=== PATIENT | female | born 1990 | race Asian ===

== ENCOUNTER 2018-02-22 17:10 | Emergency (ER) | payer OTHER ==
[~2018-02-22] VITALS: Ht 162.6 cm; Wt 65.9 kg
[2018-02-22] MEDS ORDERED: NIFE10 PO (17:25)
[2018-02-22] MEDS ORDERED: AMLO-511 PO (17:25)
[2018-02-22] MEDS ORDERED: LOSA25TA21 PO (17:25)
[2018-02-22 20:20] LABS: CALCIUM, TOTAL 9.5 mg/dL (8.8-10.5); CREATININE 18.83 mg/dL (0.60-1.30); POTASSIUM 4.2 mmol/L (3.5-5.1)
[2018-02-22 21:50] VITALS: BP 145/85
== END 2018-02-22 21:54 | disposition home or self-care (01) ==
LOC: EMS 17:12
DX: N19 Unspecified kidney failure (principal); N18.6 End stage renal disease; Z99.2 Dependence on renal dialysis
CPT/HCPCS: 99283

== ENCOUNTER 2018-03-05 00:35 | Inpatient (IN) | payer SELFPAY ==
[2018-03-05] VITALS (7 sets, daily range): BP systolic 118–170; BP diastolic 78–103
[~2018-03-05] VITALS: Ht 160 cm; Wt 81.3 kg
[~2018-03-05 00:35] MED LIST: AMLO-511 PO; LOSA25TA21 PO; NIFE10 PO
[2018-03-05] MEDS ORDERED: METO-416 PO (01:01)
[2018-03-05 01:31] LABS: BASOPHILS % (AUTO) 0.7 % (0.0-2.0); EOSINOPHILS % (AUTO) 6.7 % (1.0-6.0); HEMATOCRIT 31.4 % (36-46); HEMOGLOBIN 10.4 g/dL (12.0-16.0); LYMPHOCYTES # (AUTO) 1.3 K/uL (1.0-4.8); LYMPHOCYTES % (AUTO) 26.3 % (22.0-44.0); MEAN CORPUSCULAR HEMOGLOBIN 27.8 pg (26.0-34.0); MEAN CORPUSCULAR HGB CONC 33.1 G/dL (31.0-37.0); MEAN CORPUSCULAR VOLUME 84 fL (80-100); MONOCYTES # (AUTO) 0.5 K/uL (0.1-1.0); MONOCYTES % (AUTO) 9.3 % (2.0-9.0); NEUTROPHILS # (AUTO) 2.8 K/uL (1.8-7.7); PLATELET COUNT (AUTO) 164 K/uL (150-450); RED BLOOD CELL COUNT(AUTO) 3.74 MIL/uL (4.00-5.20); RED CELL DISTRIBUTION WIDTH 15.9 % (11.5-14.5)
[2018-03-05 01:50] LABS: ALBUMIN 4.2 g/dL (3.4-5.0); BILIRUBIN,TOTAL 0.6 mg/dL (0.1-1.0); CALCIUM, TOTAL 8.9 mg/dL (8.8-10.5); TOTAL PROTEIN, SERUM 7.9 g/dL (6.4-8.2)
[2018-03-05 01:52] LABS: CREATININE 20.03 mg/dL (0.60-1.30)
[2018-03-05 01:56] LABS: POTASSIUM 6.8 mmol/L (3.5-5.1)
[2018-03-05] MEDS ORDERED: CALCIUM GLUCONATE 0.465 MEQ/ML 10 ML VIAL IVP ONE (03:30)
[2018-03-05] MEDS ORDERED: CALCIUM GLUCONATE 100 MG/ML 10 ML IVP ONE (03:45)
[2018-03-05] MEDS ORDERED: SODIUM POLYSTYRENE SULFONATE 15 GM/60 ML SUSPENSION BOTTLE PO ONE (04:00)
[2018-03-05] MEDS ORDERED: ACETAMINOPHEN 325 MG TABLET PO PRN ×2 (04:15→05:00)
[2018-03-05] MEDS ORDERED: INSULIN REGULAR, HUMAN 100 UNITS/ML IVP ONE (04:15)
[2018-03-05] MEDS ORDERED: DEXTROSE 50%-WATER 25 GM/50 ML SYRINGE IVP ONE (04:15)
[2018-03-05] MEDS ORDERED: 0.9% SODIUM CHLORIDE 10 ML SYRINGE IVP PRN (04:15)
[2018-03-05] MEDS ORDERED: ONDANSETRON HCL 4 MG/2 ML VIAL IVP PRN (04:15)
[2018-03-05 04:29] LABS: GLUCOSE,POINT OF CARE 103 MG/DL (70-110)
[2018-03-05] MEDS ORDERED: OxyCODONE HCL/ACETAMINOPHEN 5-325 MG TABLET PO PRN (05:00)
[2018-03-05] MEDS ORDERED: ZOLPIDEM TARTRATE 5 MG TABLET PO PRN (05:00)
[2018-03-05] MEDS ORDERED: BISACODYL 10 MG RECTAL RECTAL SUPPOSITORY PR PRN (05:00)
[2018-03-05] MEDS ORDERED: ALBUTEROL SULFATE 2.5 MG/0.5 ML NEB SOLUTION NEB PRN (05:00)
[2018-03-05] MEDS ORDERED: IPRATROPIUM BROMIDE 0.5 MG/2.5 ML NEB SOLUTION NEB PRN (05:00)
[2018-03-05] MEDS ORDERED: MAGNESIUM HYDROXIDE SUSPENSION 30 ML UDCUP PO PRN (05:00)
[2018-03-05] MEDS: PANTOPRAZOLE SODIUM 40 MG DR TABLET PO SCH ×2 (09:00→14:10)
[2018-03-05] MEDS ORDERED: LOSARTAN POTASSIUM 25 MG TABLET PO SCH (09:00)
[2018-03-05] MEDS ORDERED: NIFEdipine 60 MG ER TABLET PO SCH (09:00)
[2018-03-05] MEDS: AmLODIPine BESYLATE 10 MG TABLET PO SCH ×2 (09:00→14:10)
[2018-03-05] MEDS: METOPROLOL SUCCINATE 50 MG ER TABLET PO SCH ×2 (09:00→14:11)
[2018-03-05] MEDS ORDERED: AmLODIPine BESYLATE 5 MG TABLET PO SCH (09:00)
[2018-03-05] MEDS ORDERED: NIFEdipine 10 MG CAPSULE PO SCH (09:00)
[2018-03-05] MEDS: LOSARTAN POTASSIUM 50 MG TABLET PO SCH ×2 (09:00→14:10)
[2018-03-05] MEDS: VITAMIN B COMP/VIT C/FOLIC ACID CAPSULE PO SCH ×2 (09:45→14:10)
[2018-03-05] MEDS: SEVELAMER CARBONATE 800 MG TABLET PO SCH (18:08)
[2018-03-06 04:28] VITALS: BP 155/105
[2018-03-06 05:59] LABS: BASOPHILS % (AUTO) 0.6 % (0.0-2.0); EOSINOPHILS % (AUTO) 6.3 % (1.0-6.0); HEMATOCRIT 29.8 % (36-46); HEMOGLOBIN 9.9 g/dL (12.0-16.0); LYMPHOCYTES # (AUTO) 1.1 K/uL (1.0-4.8); LYMPHOCYTES % (AUTO) 29.3 % (22.0-44.0); MEAN CORPUSCULAR HEMOGLOBIN 27.7 pg (26.0-34.0); MEAN CORPUSCULAR HGB CONC 33.3 G/dL (31.0-37.0); MEAN CORPUSCULAR VOLUME 83 fL (80-100); MONOCYTES # (AUTO) 0.4 K/uL (0.1-1.0); MONOCYTES % (AUTO) 10.4 % (2.0-9.0); NEUTROPHILS % (AUTO) 53.4 % (40.0-70.0); PLATELET COUNT (AUTO) 142 K/uL (150-450); RED BLOOD CELL COUNT(AUTO) 3.59 MIL/uL (4.00-5.20); RED CELL DISTRIBUTION WIDTH 15.8 % (11.5-14.5)
[2018-03-06 06:21] LABS: PROTHROMBIN TIME 10.9 SEC (9.4-11.6)
[2018-03-06 06:33] LABS: ALBUMIN 3.4 g/dL (3.4-5.0); BILIRUBIN,TOTAL 0.7 mg/dL (0.1-1.0); CALCIUM, TOTAL 8.3 mg/dL (8.8-10.5); CHOL/HDL RATIO 1.9 (3.9-5.7); CREATININE 13.22 mg/dL (0.60-1.30); MAGNESIUM 2.5 mg/dL (1.80-2.40); PHOSPHORUS 5.9 mg/dL (2.5-4.9); POTASSIUM 5.5 mmol/L (3.5-5.1); THYROID STIMULATING HORMONE 2.97 uIU/mL (0.36-3.74); TOTAL PROTEIN, SERUM 6.9 g/dL (6.4-8.2)
[2018-03-06] MEDS ORDERED: SODIUM CHLORIDE 0.9% 1,000 ML IV ONE ×2 (06:35)
[2018-03-06 07:38] LABS: HEMOGLOBIN A1C 4.4 % (4.5-6.2)
[2018-03-06] MEDS: SEVELAMER CARBONATE 800 MG TABLET PO SCH ×3 (08:00→18:11)
[2018-03-06 08:41] VITALS: BP 193/121
[2018-03-06] MEDS ORDERED: EPOETIN ALFA 10,000 UNITS/ML 2 ML VIAL SQ SCH (09:00)
[2018-03-06] MEDS: METOPROLOL SUCCINATE 50 MG ER TABLET PO SCH (11:54)
[2018-03-06] MEDS: AmLODIPine BESYLATE 10 MG TABLET PO SCH (11:54)
[2018-03-06] MEDS: LOSARTAN POTASSIUM 50 MG TABLET PO SCH (11:54)
[2018-03-06] MEDS: VITAMIN B COMP/VIT C/FOLIC ACID CAPSULE PO SCH (11:55)
[2018-03-06] MEDS: PANTOPRAZOLE SODIUM 40 MG DR TABLET PO SCH (11:55)
[2018-03-06 12:14] VITALS: BP 194/106
[2018-03-06 13:15] VITALS: BP 143/86
[2018-03-06 15:46] VITALS: BP 135/87
[2018-03-06 19:47] VITALS: BP 155/96
== END 2018-03-06 20:45 | disposition home or self-care (01) | DRG 682 ==
LOC: EMS 00:36 → 5S 03:30
PROVIDERS: ADMIT Internal Medicine; ATTEND Internal Medicine
PROC: 5A1D70Z Performance of Urinary Filtration, Intermittent, Less than 6 Hours Per Day (ICD-10-PCS; principal; 2018-03-05)
PROC: 5A1D70Z Performance of Urinary Filtration, Intermittent, Less than 6 Hours Per Day (ICD-10-PCS; 2018-03-06)
DX: I12.0 Hypertensive chronic kidney disease with stage 5 chronic kidney disease or end stage renal disease (principal); N18.6 End stage renal disease; D63.1 Anemia in chronic kidney disease; E87.5 Hyperkalemia; R79.89 Other specified abnormal findings of blood chemistry; E87.70 Fluid overload, unspecified; Z91.15 Patient's noncompliance with renal dialysis; Z99.2 Dependence on renal dialysis; Z79.899 Other long term (current) drug therapy
CPT/HCPCS: 82306; 83036; 83735; 84100; 84132; 84443; 86704; 86706; 87081; 87340; 93005; 99285; J0610; J0885; J1815; J7030